=== PATIENT | female | born 1935 | race Caucasian/White ===

== ENCOUNTER 2017-09-15 23:57 | Emergency (ER) | payer MEDICARE, OTHER ==
[2017-09-16] VITALS: BP 161/84
--- NOTE | 2017-09-16 00:38 | EDM.PDOC ---
ED HPI GENERAL MEDICAL PROBLEM - General Chief Complaint: Upper Extremity Injury/Pain Stated Complaint: fall, shoulder injury Time Seen by Provider: 09/16/17 00:07 Source of Information: Reports: Patient History Limitations: Reports: No Limitations - History of Present Illness INITIAL COMMENTS - FREE TEXT/NARRATIVE: Fell injuring right shoulder, and bumping head on a wall at home. denies loss of consciousness. Onset: Today, Sudden Duration: Minutes: Location: Reports: Upper Extremity, Right Front/Back Body Image: 1 - pain and decreased ROM 2 - small lump on scalp. Quality: Reports: Sharp Severity: Moderate Improves with: Reports: None Worsens with: Reports: Movement Associated Symptoms: Reports: No Other Symptoms Right Shoulder Pain Score (Numeric/FACES): 10 - Related Data Allergies Allergy/AdvReac Type Severity Reaction Status Date / Time cefuroxime axetil Allergy Cannot Verified 09/16/17 00:07 [From Ceftin] Remember hydrocodone Allergy Cannot Verified 09/16/17 00:07 Remember naproxen sodium [From Aleve] Allergy Cannot Verified 09/16/17 00:07 Remember primidone Allergy Nausea Verified 09/16/17 00:07 sulfamethoxazole Allergy Cannot Verified 09/16/17 00:07 [From Septra] Remember trimethoprim [From Septra] Allergy Cannot Verified 09/16/17 00:07 Remember Home Meds: Home Meds Acetaminophen [Tylenol Extra Strength] 500 mg PO Q6H PRN 04/22/15 [History] Cholecalciferol (Vitamin D3) [Vitamin D] 1,000 units PO DAILY 04/22/15 [History] Clopidogrel Bisulfate [Plavix] 75 mg PO DAILY 04/22/15 [History] Hydrochlorothiazide [Hydrochlorothiazide] 25 mg PO DAILY 04/22/15 [History] Levothyroxine Sodium [Levoxyl] 50 mcg PO DAILY 04/22/15 [History] Losartan Potassium 50 mg PO DAILY 04/22/15 [History] Magnesium 500 mg PO DAILY 04/22/15 [History] Metoprolol Succinate [Toprol XL] 25 mg PO DAILY 04/22/15 [History] Nitroglycerin [Nitrostat] 0.4 mg SL DAILY PRN 04/22/15 [History] Potassium Chloride [Klor-Con 10] 20 meq PO DAILY 04/22/15 [History] atorvaSTATin Calcium [Lipitor] 10 mg PO DAILY 04/22/15 [History] Ascorbate Calcium [Vitamin C] 500 mg PO DAILY 02/24/16 [History] Carbidopa/Levodopa [Carbidopa-Levodopa 25-100 Tab] 1 tab PO BID 09/08/17 [ History] Cranberry Extract [Cranberry] 1 tab PO DAILY 09/08/17 [History] Cyanocobalamin (Vitamin B12) [Vitamin B12] 1,000 mcg PO DAILY 09/08/17 [History] Past Medical History HEENT History: Reports: Cataract Cardiovascular History: Reports: CAD, High Cholesterol, Hypertension Other Cardiovascular History: varicose veins of legs Respiratory History: Reports: Pneumonia, Recurrent Genitourinary History: Reports: Urinary Incontinence Musculoskeletal History: Reports: Arthritis, Back Pain, Chronic, Fracture, Other (See Below) Other Musculoskeletal History: herniated disc Neurological History: Reports: Other (See Below) Other Neuro History: history of tremors Endocrine/Metabolic History: Reports: Hypothyroidism Oncologic (Cancer) History: Reports: Other (See Below) Other Oncologic History: basal cell CA face Dermatologic History: Reports: Other (See Below) Other Dermatologic History: basal call CA face - Past Surgical History HEENT Surgical History: Reports: Cataract Surgery Cardiovascular Surgical History: Reports: Coronary Artery Stent GI Surgical History: Reports: Appendectomy, Hernia Repair/Other Social & Family History - Tobacco Use Smoking Status *Q: Never Smoker Review of Systems - Review of Systems Review Of Systems: See Below Constitutional: Reports: No Symptoms Eyes: Reports: No Symptoms Ears: Reports: No Symptoms Nose: Reports: No Symptoms Mouth/Throat: Reports: No Symptoms Respiratory: Reports: No Symptoms Cardiovascular: Reports: No Symptoms Musculoskeletal: Reports: Joint Pain, Muscle Pain, Muscle Stiffness Skin: Reports: No Symptoms Neurological: Reports: No Symptoms Psychiatric: Reports: No Symptoms ED EXAM, GENERAL - Physical Exam Exam: See Below Exam Limited By: No Limitations General Appearance: Alert, WD/WN Nose: Normal Inspection Throat/Mouth: Normal Inspection Head: Other (small lump on right side of head) Neck: Normal Inspection Respiratory/Chest: No Respiratory Distress Cardiovascular: Normal Peripheral Pulses GI/Abdominal: Normal Bowel Sounds (Female) Exam: Normal External Exam Neurological: Alert, Oriented, CN II-XII Intact, Normal Cognition, Normal Gait, Normal Reflexes Psychiatric: Normal Affect Skin Exam: Warm, Dry, Intact Course - Vital Signs Last Recorded V/S: Last Vital Signs Temp 97.5 F 09/15/17 23:57 Pulse 81 09/15/17 23:57 Resp 20 09/15/17 23:57 BP 161/84 H 09/15/17 23:57 Pulse Ox 100 09/15/17 23:57 - Orders/Labs/Meds Orders: Active Orders 24 hr Category Date Time Status Shoulder Comp Rt [CR] Stat Exams 09/16/17 00:10 Taken Departure - Departure Time of Disposition: 00:33 (No obvious fractures) Disposition: Home, Self-Care 01 Condition: Good Clinical Impression: Shoulder pain, right, Shoulder contusion - Discharge Information Instructions: Shoulder Pain Referrals: Elbert Prescott MD [Primary Care Provider] - Forms: ED Department Discharge - My Orders Last 24 Hours: My Active Orders 09/16/17 00:10 Shoulder Comp Rt [CR] Stat - Assessment/Plan Last 24 Hours: My Active Orders 09/16/17 00:10 Shoulder Comp Rt [CR] Stat
== END 2017-09-16 01:03 | disposition home or self-care (01) ==
LOC: CC.ED 23:57
DX: S42.254A Nondisplaced fracture of greater tuberosity of right humerus, initial encounter for closed fracture (principal); R22.0 Localized swelling, mass and lump, head; I10 Essential (primary) hypertension; E78.00 Pure hypercholesterolemia, unspecified; I25.10 Atherosclerotic heart disease of native coronary artery without angina pectoris; E03.9 Hypothyroidism, unspecified; Z88.5 Allergy status to narcotic agent; Z88.8 Allergy status to other drugs, medicaments and biological substances; Z88.2 Allergy status to sulfonamides; W18.30XA Fall on same level, unspecified, initial encounter; Y92.009 Unspecified place in unspecified non-institutional (private) residence as the place of occurrence of the external cause; Z79.899 Other long term (current) drug therapy
CPT/HCPCS: 73030-RT; 99283

== ENCOUNTER → 2017-09-24 | Day surgery (SDC) | payer MEDICARE, OTHER ==
[~2017-09-24] MED LIST: Lactated Ringers 1,000 ML IV SCH; Propofol 200 MG/20 ML SDV IV ONE
[2017-09-24 12:33] VITALS: BP 125/56
--- NOTE | 2017-09-25 07:26 | OR ---
DATE OF OPERATION: 09/24/2017 PREOPERATIVE DIAGNOSIS: GASTROESOPHAGEAL REFLUX DISEASE. POSTOPERATIVE DIAGNOSIS: GASTROESOPHAGEAL REFLUX DISEASE. SURGEON: Terrell Schaefer MD PROCEDURE: UPPER GASTROINTESTINAL ENDOSCOPY WITH CLOTEST. ANESTHESIA: Cetacaine spray and IV sedation. DESCRIPTION OF PROCEDURE: After the patient's oropharyngeal mucosa was anesthetized with the help of Cetacaine spray, the patient was made to swallow the gastroscope down. The patient's esophagus was normal. EG junction is close to 40 cm level. There was no evidence of any hiatal hernia or any esophagitis. Body of the stomach, antrum, pyloric channel, and 1st and 2nd part of duodenum were examined, they were free of any tumor, mass, any polypoid lesion, any inflammatory process. Multiple photographs were taken. Gastroscope was retroverted and fundus was also examined, it was free of any pathology. A biopsy for CLOtest was taken. Then, gastroscope was gradually withdrawn. The patient tolerated the procedure well and left the operating room in satisfactory condition. RAMESH/EDSON /[id number]
== END ==
LOC: CC.SDS 11:04
PROVIDERS: ATTEND Surgery
DX: K21.9 Gastro-esophageal reflux disease without esophagitis (principal); I25.10 Atherosclerotic heart disease of native coronary artery without angina pectoris; I10 Essential (primary) hypertension; E78.5 Hyperlipidemia, unspecified; E87.6 Hypokalemia; E03.9 Hypothyroidism, unspecified; E55.9 Vitamin D deficiency, unspecified; Z79.899 Other long term (current) drug therapy; Z88.1 Allergy status to other antibiotic agents; Z88.2 Allergy status to sulfonamides; Z88.8 Allergy status to other drugs, medicaments and biological substances; Z90.49 Acquired absence of other specified parts of digestive tract; Z72.0 Tobacco use
CPT/HCPCS: 43239; 87081; J2704; J7120; 00731

== ENCOUNTER 2018-01-04 08:31 | Emergency (ER) | payer MEDICARE, OTHER ==
[2018-01-04 08:37] VITALS: BP 138/60
--- NOTE | 2018-01-04 09:36 | EDM.PDOC ---
ED HPI GENERAL MEDICAL PROBLEM - General Chief Complaint: Head Injury Stated Complaint: FELL AT HOME Time Seen by Provider: 01/04/18 08:45 - History of Present Illness INITIAL COMMENTS - FREE TEXT/NARRATIVE: Ledy is an 82 year old female who presents to the ED via private vehicle with her daughter in law with c/o head injury. She reports she got up this morning to use the bathroom. She reports she was sitting on the toliet and the next thing she remembers she woke up on the floor. She reports she was able to get back to her bed and call her daughter in law. She reports she must've hit her head on the bathtub as she has a hematoma to her left eyelid and her right posterior scalp. She reports she feels fine now. She offers no complaints other than a headache. GCS 15. She denies any dizziness, chest pain, shortness of breath, recent illness. . Onset: Today, Sudden Onset Date: 01/04/18 Onset Time: 06:00 Duration: Resolved Prior to Arrival Location: Reports: Head Quality: Reports: Ache Severity: Mild Associated Symptoms: Reports: Headaches, Syncope. Denies: Confusion, Chest Pain , Cough, cough w sputum, Diaphoresis, Fever/Chills, Loss of Appetite, Malaise, Nausea/Vomiting, Rash, Seizure, Shortness of Breath, Weakness Right Head Pain Score (Numeric/FACES): 3 - Related Data Allergies Allergy/AdvReac Type Severity Reaction Status Date / Time cefuroxime axetil Allergy Cannot Verified 01/04/18 09:08 [From Ceftin] Remember hydrocodone Allergy Cannot Verified 01/04/18 09:08 Remember naproxen sodium [From Aleve] Allergy Cannot Verified 01/04/18 09:08 Remember primidone Allergy Nausea Verified 01/04/18 09:08 sulfamethoxazole Allergy Cannot Verified 01/04/18 09:08 [From Septra] Remember trimethoprim [From Septra] Allergy Cannot Verified 01/04/18 09:08 Remember Home Meds: Home Meds Acetaminophen [Tylenol Extra Strength] 500 mg PO BID 04/22/15 [History] Cholecalciferol (Vitamin D3) [Vitamin D] 2,000 units PO DAILY 04/22/15 [History] Clopidogrel Bisulfate [Plavix] 75 mg PO DAILY 04/22/15 [History] Hydrochlorothiazide 25 mg PO DAILY 04/22/15 [History] Levothyroxine Sodium [Levoxyl] 50 mcg PO DAILY 04/22/15 [History] Magnesium 2 tab PO BID 04/22/15 [History] Metoprolol Succinate [Toprol XL] 25 mg PO DAILY 04/22/15 [History] Nitroglycerin [Nitrostat] 0.4 mg SL DAILY PRN 04/22/15 [History] Potassium Chloride [Klor-Con 10] 20 meq PO DAILY 04/22/15 [History] atorvaSTATin Calcium [Lipitor] 10 mg PO DAILY 04/22/15 [History] Carbidopa/Levodopa [Carbidopa-Levodopa 25-100 Tab] 1.5 tab PO QAM 09/08/17 [ History] Cyanocobalamin (Vitamin B12) [Vitamin B12] 1,000 mcg PO DAILY 09/08/17 [History] Carbidopa/Levodopa [Carbidopa-Levodopa 25-100 Tab] 1 tab PO QPM 09/19/17 [ History] LORazepam 1 mg PO Q8H PRN 09/19/17 [History] Ondansetron HCl [Zofran] 1 - 2 tab PO Q8H PRN 09/19/17 [History] Pantoprazole Sodium [Protonix] 40 mg PO DAILY 09/19/17 [History] Torsemide [Demadex] 20 mg PO DAILY 09/19/17 [History] Oxybutynin [Oxybutynin ER] 5 mg PO DAILY 01/04/18 [History] Past Medical History HEENT History: Reports: Cataract Cardiovascular History: Reports: CAD, High Cholesterol, Hypertension, Stents Other Cardiovascular History: varicose veins of legs Respiratory History: Reports: Pneumonia, Recurrent Gastrointestinal History: Reports: GERD Genitourinary History: Reports: Urinary Incontinence, UTI, Recurrent 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: Musculoskeletal History: Reports: Arthritis, Back Pain, Chronic, Fracture, Other (See Below) Other Musculoskeletal History: herniated disc Neurological History: Reports: Parkinson's Other Neuro History: history of tremors Endocrine/Metabolic History: Reports: Hypothyroidism Oncologic (Cancer) History: Reports: Other (See Below) Other Oncologic History: basal cell CA face Dermatologic History: Reports: Other (See Below) Other Dermatologic History: basal call CA face - Past Surgical History HEENT Surgical History: Reports: Cataract Surgery Cardiovascular Surgical History: Reports: Coronary Artery Stent, Vascular Surgery Respiratory Surgical History: Reports: None GI Surgical History: Reports: Appendectomy, Colonoscopy, Hernia Repair/Other, Polypectomy, Other (See Below) Other GI Surgeries/Procedures: had part of colon removed many years ago Female Surgical History: Reports: None Neurological Surgical History: Reports: None Social & Family History - Family History Family Medical History: Noncontributory - Tobacco Use Smoking Status *Q: Never Smoker - Caffeine Use Caffeine Use: Reports: None - Recreational Drug Use Recreational Drug Use: No ED ROS GENERAL - Review of Systems Review Of Systems: ROS reveals no pertinent complaints other than HPI. ED EXAM, HEAD INJURY - Physical Exam Exam: See Below Exam Limited By: No Limitations General Appearance: Alert, WD/WN, No Apparent Distress Head: Normocephalic, Scalp Swelling (right posterior), Scalp Hematoma (right posterior), Facial Ecchymosis (left posterior eyelid). No: Scalp Abrasions, Raccoon Eyes Nexus Criteria: No: Altered Level of Consciousness, Focal Neurological Deficit Eyes: Bilateral Eye: EOMI, Normal Fundi, Normal Inspection, PERRL Ears: Normal External Exam, Normal Canal, Hearing Grossly Normal, Normal TMs Nose: Normal Inspection, Normal Mucousa, No Blood Throat/Mouth: Normal Inspection, Normal Lips, Normal Teeth, Normal Gums, Normal Oropharynx, Normal Voice, No Airway Compromise Neck: Non-Tender, Full Range of Motion, Normal Alignment, Normal Inspection Respiratory: No Respiratory Distress, Lungs Clear, Normal Breath Sounds, No Accessory Muscle Use, Chest Non-Tender Cardiovascular: Normal Peripheral Pulses, Regular Rate, Rhythm, No Edema, No Gallop, No JVD, No Murmur, No Rub Extremities: Normal Inspection, Normal Range of Motion, Non-Tender, No Pedal Edema, Normal Capillary Refill Neurologic: printer apprentice II-XII nml As Tested, No Motor/Sensory Deficits, Alert, Normal Mood/Affect, Oriented x 3 - [place] Coma Score Best Eye Response ([place]): (4) Open Spontaneously Best Verbal Response ([place]): (5) Oriented Best Motor Response ([place]): (6) Obeys Commands Course - Vital Signs Last Recorded V/S: Last Vital Signs Temp 98.7 F 01/04/18 08:32 Pulse 66 01/04/18 08:32 Resp 20 01/04/18 08:32 BP 138/60 01/04/18 08:32 Pulse Ox 99 01/04/18 08:32 - Orders/Labs/Meds Orders: Active Orders 24 hr Category Date Time Status Head wo Cont [CT] Stat Exams 01/04/18 08:37 Taken - Radiology Interpretation Free Text/Narrative:: No acute intracranial abnormalities. CT Results Date: 01/04/18 CT Results Time: 09:30 Departure - Departure Time of Disposition: 09:31 Disposition: Home, Self-Care 01 Condition: Good Clinical Impression: Vasovagal reaction Fall Qualifiers: Encounter type: initial encounter Qualified Code(s): W19.XXXA - Unspecified fall, initial encounter Contusion, eyelid, left Qualifiers: Encounter type: initial encounter Qualified Code(s): S00.12XA - Contusion of left eyelid and periocular area, initial encounter Head contusion Qualifiers: Encounter type: initial encounter Contusion of head detail: scalp Qualified Code(s): S00.03XA - Contusion of scalp, initial encounter - Discharge Information Instructions: Facial or Scalp Contusion, Vasovagal Syncope, Adult Forms: ED Department Discharge Additional Instructions: Return to ED for any emergent needs or changes in neuro status Make sure you drink at least 6-8 glasses of water daily Sit at edge of bed for a minute or two before getting up in mornings or up to bathroom at night Ice to left eyelid and right scalp Close supervision at home Follow up with Dr. Prescott as needed - My Orders Last 24 Hours: My Active Orders 01/04/18 08:37 Head wo Cont [CT] Stat - Assessment/Plan Last 24 Hours: My Active Orders 01/04/18 08:37 Head wo Cont [CT] Stat
== END 2018-01-04 09:50 | disposition home or self-care (01) ==
LOC: CC.ED 08:31
DX: R55 Syncope and collapse (principal); S00.12XA Contusion of left eyelid and periocular area, initial encounter; S00.03XA Contusion of scalp, initial encounter; E78.00 Pure hypercholesterolemia, unspecified; I10 Essential (primary) hypertension; K21.9 Gastro-esophageal reflux disease without esophagitis; E03.9 Hypothyroidism, unspecified; Z88.5 Allergy status to narcotic agent; Z88.6 Allergy status to analgesic agent; Z88.2 Allergy status to sulfonamides; Z88.1 Allergy status to other antibiotic agents; Z79.899 Other long term (current) drug therapy; W19.XXXA Unspecified fall, initial encounter; Y92.002 Bathroom of unspecified non-institutional (private) residence as the place of occurrence of the external cause
CPT/HCPCS: 70450; 99284